=== PATIENT | male | born 1985 | race Asian ===

== ENCOUNTER 2025-02-16 23:49 | Emergency (ER) | payer BC ==
[~2025-02-16] VITALS: Ht 182.9 cm; Wt 100.0 kg
[2025-02-17 00:11] VITALS: TEMP 36.7; O2SAT 100
[2025-02-17] MEDS: TETRACAINE 0.5% OPHTH DROPS 4ML BOTHEYE ONE (00:45)
[2025-02-17] MEDS: FLUORESCEIN SODIUM 1MG/STRIP BOTHEYE ONE (00:45)
[2025-02-17] MEDS ORDERED: ERYT1OIN6 EACHEYE (02:23)
[2025-02-17 02:38] VITALS: BP 143/101; PULSE 60; RESP 12; O2SAT 97
== END 2025-02-17 02:39 | disposition home or self-care (01) ==
LOC: ER 23:49
DX: H57.89 Other specified disorders of eye and adnexa (principal); Z98.890 Other specified postprocedural states
CPT/HCPCS: 70480; 99284